=== PATIENT | female | born 1950 | race Caucasian/White ===

== ENCOUNTER → 2016-09-09 | Outpatient (CLI) | payer OTHER | LOC: CIMAGING 07:22 | DX: Z12.31 Encounter for screening mammogram for malignant neoplasm of breast (principal) | CPT/HCPCS: G0202 ==

== ENCOUNTER 2016-11-26 16:59 | Emergency (ER) | payer OTHER ==
[2016-11-26 17:03] VITALS: BP 148/114; PULSE 73; RESP 18; TEMP 98; O2SAT 97
[2016-11-26] MEDS ORDERED: RABIES VACC, HUMAN DIPLOID/PF 2.5 UNIT VIAL (RABAVERT) IM ONE (17:05)
[2016-11-26] MEDS ORDERED: RABIES IMMUNE GLOBULIN 300 UNIT/2 ML VIAL IM ONE (17:05)
--- NOTE | 2016-11-26 17:14 | EDPHY ---
H & P Stated Complaint: recent exsposure to bats Time Seen by Provider: 11/26/16 17:05 HPI/ROS: CHIEF COMPLAINT: Back exposure HISTORY OF PRESENT ILLNESS: Patient is a 65-year-old female who found a bat on her bedroom floor 3 days ago. It was moving slowly. She sprayed it with bug spray tell it and threw it away. Her doctor told her to come and get rabies vaccinations. She has not sure if she was bitten or exposed to saliva. REVIEW OF SYSTEMS: Constitutional: denies: chills, fever, recent illness, recent injury EENTM: denies: blurred vision, double vision, nose congestion Respiratory: denies: cough, shortness of breath Cardiac: denies: chest pain, irregular heart rate, lightheadedness, palpitations Gastrointestinal/Abdominal: denies: abdominal pain, diarrhea, nausea, vomiting, blood streaked stools Genitourinary: denies: dysuria, frequency, hematuria, pain Musculoskeletal: denies: joint pain, muscle pain Skin: denies: lesions, rash, jaundice, bruising Neurological: denies: headache, numbness, paresthesia, tingling, dizziness, weakness Hematologic/Lymphatic: denies: blood clots, easy bleeding, easy bruising Immunologic/allergic: denies: HIV/AIDS, transplant EXAM: GENERAL: Well-appearing, well-nourished and in no acute distress. HEAD: Atraumatic, normocephalic. EYES: Pupils equal round and reactive to light, extraocular movements intact, sclera anicteric, conjunctiva are normal. ENT: TMs normal, nares patent, oropharynx clear without exudates. Moist mucous membranes. NECK: Normal range of motion, supple without lymphadenopathy or JVD. LUNGS: Breath sounds clear to auscultation bilaterally and equal. No wheezes rales or rhonchi. HEART: Regular rate and rhythm without murmurs, rubs or gallops. ABDOMEN: Soft, nontender, normoactive bowel sounds. No guarding, no rebound. No masses appreciated. BACK: No CVA tenderness, no spinal tenderness, step-offs or deformities EXTREMITIES: Normal range of motion, no pitting or edema. No clubbing or cyanosis. NEUROLOGICAL: Cranial nerves II through XII grossly intact. Normal speech, normal gait. 5/5 strength, normal movement in all extremities, normal sensation PSYCH: Normal mood, normal affect. SKIN: Warm, dry, normal turgor, no visible rashes or lesions. Source: Patient Exam Limitations: No limitations - Personal History Current Tetanus Diphtheria and Acellular Pertussis (TDAP): Yes Tetanus Vaccine Date: < 10 years - Medical/Surgical History Hx Asthma: No Hx Chronic Respiratory Disease: No Hx Diabetes: Yes Hx Cardiac Disease: No Hx Renal Disease: No Hx Cirrhosis: No Hx Alcoholism: No Hx HIV/AIDS: No Hx Splenectomy or Spleen Trauma: No Other PMH: SLEEP APNEA, VERTIGO, GASTRITIS, GALL BLADDER, HYSTERECTOMY, NIDDM - Family History Significant Family History: No pertinent family hx - Social History Smoking Status: Never smoked Alcohol Use: Sober Drug Use: None Constitutional: Initial Vital Signs Temperature (C) 36.6 C 11/26/16 17:00 Heart Rate 73 11/26/16 17:00 Respiratory Rate 18 11/26/16 17:00 Blood Pressure 148/114 H 11/26/16 17:00 O2 Sat (%) 97 11/26/16 17:00 O2 Delivery Mode Room Air Allergies/Adverse Reactions: No Known Allergies Allergy (Unverified 05/08/15 19:24) Home Medications: Medication Instructions Recorded Amlodipine Besylate 5 mg DAILY 05/08/15 GLIPIZIDE 10 mg DAILY 05/08/15 Januvia 25 MG (RX) 100 mg DAILY 05/08/15 Metformin HCl 1,000 mg BID 05/08/15 SIMVASTATIN 10 mg DAILY 05/08/15 Dapagliflozin Propanediol [Farxiga] 5 mg DAILY 06/11/15 Phenazopyridine HCl [Pyridium 100 mg PO QID #12 tab 06/11/15 100mg (RX)] Medical Decision Making ED Course/Re-evaluation: Possible rabies exposure. We will begin treatment protocol. We discussed follow-up either here or at ID. Differential Diagnosis: Partial list of the Differential diagnosis considered include but were not limited to; rabies exposure, and although unlikely based on the history and physical exam, I also considered anxiety, abrasion, sepsis. - Data Points Medications Given: Discontinued Medications Rabies Immune Globulin (Imogam Rabies Ht 2ml) 1,868.8 unit IM .ONCE ONE Stop: 11/26/16 17:06 Last Admin: 11/26/16 17:35 Dose: 1,869 unit Rabies Vaccine Human Diploid Cell (Rabavert) 2.5 unit IM .ONCE ONE Stop: 11/26/16 17:06 Last Admin: 11/26/16 17:51 Dose: 2.5 unit Departure - Departure Disposition: Home, Routine, Self-Care Clinical Impression: Need for post exposure prophylaxis for rabies Condition: Fair Instructions: Rabies Vaccine (By injection), Rabies Immune Globulin (By injection) Additional Instructions: Return for further vaccinations 3 days from now, 7 days from now and 14 days from now. Or follow up with infectious disease. Referrals: Miranda Haas MD [Primary Care Provider] - As per Instructions Genia Rodriguez MD [Medical Doctor] - As per Instructions
== END 2016-11-26 18:00 | disposition home or self-care (01) ==
LOC: CED 16:59
DX: Z20.3 Contact with and (suspected) exposure to rabies (principal); E11.9 Type 2 diabetes mellitus without complications; Z23 Encounter for immunization; Z79.84 Long term (current) use of oral hypoglycemic drugs

== ENCOUNTER → 2017-10-03 | Outpatient (CLI) | payer OTHER | LOC: CIMAGING 07:18 | PROVIDERS: ATTEND Family Medicine | DX: Z12.31 Encounter for screening mammogram for malignant neoplasm of breast (principal) ==

== ENCOUNTER → 2018-10-07 | Outpatient (CLI) | payer OTHER | LOC: CIMAGING 07:41 ==

== ENCOUNTER → 2018-10-14 | Outpatient (CLI) | payer OTHER | LOC: FIMAGING 14:36 ==